=== PATIENT | male | born 2005 | race Hispanic/Latino ===

== ENCOUNTER 2025-04-23 13:16 | Emergency (ER) | payer OTHER, SELFPAY ==
[2025-04-23] VITALS (9 sets, daily range): BP systolic 128–140; BP diastolic 71–85; PULSE 70–87; RESP 16–19; TEMP 36.4–36.5; O2SAT 97–100; BMI 25.3
--- NOTE | 2025-04-23 13:27 | ED.RN ---
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 PT FELL OFF OF A WATER TOWER, NON SALVADOREAN SPEAKING. COMPANY IS [employer] #[phone]. THIS NURSE ATTEMPTED A PHONE CALL WHERE A GENERIC VOICEMAIL CAME ON RIGHT AWAY. CALL PURPOSE WAS FOR THE NEED OF DRUG TESTING OR NOT. THIS NURSE DID NOT LEAVE A MESSAGE ON THE VOICEMAIL IT WOULD CONTAIN PT INFORMATION AND IT DID NOT STATE COMPANY NAME ON THE VOICEMAIL.
--- NOTE | 2025-04-23 13:35 | CT_ITS ---
PROCEDURE: CT CHEST, ABD, PELVIS WO CONT 04/23/2025 REASON FOR EXAM: TRAUMA TECHNIQUE: Chest, abdomen and pelvis CT without intravenous contrast. Coronal and Sagittal reconstruction series were provided. One or more dose reduction techniques were used (e.g., Automated exposure control, adjustment of the mA and/or kV according to patient size, use of iterative reconstruction technique. RADIATION DOSE SUMMARY: See CT head for discussion of radiation dosage. COMPARISON: None. FINDINGS: CT CHEST: Hardware: None. Lymph nodes: Visualization is limited without the use of IV contrast. No obvious axillary, mediastinal or hilar lymphadenopathy. Heart and Vasculature: The heart is normal in size without pericardial effusion. The great vessels are grossly normal in caliber. No coronary artery calcifications. Lungs and Airways: Visualization is slightly limited by motion artifact. The central airways are grossly patent. Focal ground-glass opacity within the right middle lobe (series 11, image 75). No pleural effusion or pneumothorax. Bones: No acute thoracic fracture. CT ABDOMEN / PELVIS: Noncontrast technique limits evaluation of the abdominal and pelvic viscera. Liver: The unopacified liver is normal in size. No biliary ductal dilation. Gallbladder: No radiopaque stones within the gallbladder. Spleen: Normal in size. Pancreas: The unopacified pancreas is grossly unremarkable. Adrenals: No adrenal mass. Kidneys: No hydronephrosis or nephrolithiasis. Bladder: Distended and unremarkable. Reproductive Organs: Unremarkable. Bowel: The bowel loops are nondilated. No ascites or pneumoperitoneum. Normal appendix. Lymph nodes: Visualization is limited without the use of IV contrast. No large lymphadenopathy. Vasculature: The abdominal aorta and IVC are normal. Bones/soft tissues: No acute osseous fracture. Mild subcutaneous thickening along the left posterolateral hip. CT/CT Chest, Abd, Pelvis WO Cont IMPRESSION: CT chest: 1. No traumatic thoracic finding on noncontrast examination. 2. Small ground-glass opacity within the right middle lobe, which is indetermin ate in etiology and may be secondary to motion artifact or pneumonitis. Follow-up chest CT in 2 months could be useful to melissa luate for stability/resolution. CT abdomen/pelvis: No acute abdominopelvic finding on noncontrast examination. Reading Location: [facility]
--- NOTE | 2025-04-23 13:35 | EKG12_ITS ---
Test Reason : TRAUMA Blood Pressure : */* mmHG Vent. Rate : 71 BPM Atrial Rate : 71 BPM P-R Int : 174 ms QRS Dur : 86 ms QT Int : 382 ms P-R-T Axes : 63 96 39 degrees QTcB Int : 415 ms Normal sinus rhythm Rightward axis Borderline ECG Confirmed by IVETH GARCIA, GELA ([id number]), food editor PAIGE VANESSA ([id number]) on 04/25/2025 1:15:10 PM Referred By: Confirmed By: GELA LAZARO MD
--- NOTE | 2025-04-23 13:36 | CT_ITS ---
PROCEDURE: SPINE CERVICAL WITHOUT CONTRAS 04/23/2025 REASON FOR EXAM: TRAUMA TECHNIQUE: Cervical spine CT without contrast. Coronal and Sagittal reconstruction series were provided. One or more dose reduction techniques were used (e.g., Automated exposure control, adjustment of the mA and/or kV according to patient size, use of iterative reconstruction technique. RADIATION DOSE SUMMARY: DLP: 500 mGycm COMPARISON: None. FINDINGS: Alignment: There is straightening of the normal cervical lordosis. No traumatic listhesis. Vertebrae: No acute fracture. The vertebral body heights are maintained. No significant central or neural foraminal stenosis. Soft Tissues: No prevertebral hematoma. CT/Spine Cervical without Contras IMPRESSION: NO ACUTE CERVICAL FRACTURE Reading Location: [id number]
--- NOTE | 2025-04-23 13:36 | CT_ITS ---
EXAM: BRAIN/HEAD WITHOUT CONTRAST CLINICAL HISTORY: 19 y/o M with TRAUMA. COMPARISON: None. TECHNIQUE: Routine CT imaging of the head without IV contrast. Additional multiplanar reformats were obtained. Dose reduction techniques were used including intermediate exposure control (AEC),iterative reconstruction technique, and/or mA and/or KV dose adjustments based on patient's size. FINDINGS: The ventricles, sulci and cisterns are normal for patient age. There is no evidence of acute intracranial hemorrhage or herniation. There is no midline shift, mass effect, or extra-axial collection. The watson and white matter interfaces are maintained. Trace mucosal thickening of the right maxillary sinus. The orbits, visualized paranasal sinuses and mastoids are unremarkable. No acute calvarial fracture or scalp hematoma. Nasal fracture better evaluated on same-day facial CT. CT/Brain/Head without Contrast IMPRESSION: 1. No acute intracranial finding. 2. Nasal fracture better evaluated on same-day facial CT. Reading Location: [id number]
--- NOTE | 2025-04-23 13:39 | CT_ITS ---
EXAM: SINUS/FACIAL BONE CLINICAL HISTORY: TRAUMA COMPARISON: Same day CT head and C-spine. TECHNIQUE: Helical CT of the facial bones without IV contrast. Reformatted images are included for review. Dose reduction techniques were used including intermediate exposure control (AEC),iterative reconstruction technique, and/or mA and/or KV dose adjustments based on patient's size. FINDINGS: Acute, mildly comminuted fracture of the nasal bone and left frontal process, with associated mild hematoma. No additional linear lucency, cortical irregularity or bony deformity to suggest acute displaced fracture. The bilateral orbits, temporomandibular joints, pterygoid plates and zygomatic arches are symmetrically intact. The bilateral ocular muscles are symmetric and intact. The mandible is grossly intact. Mild mucosal thickening of the right maxillary sinus. The paranasal sinuses are otherwise well-aerated. The mastoid air cells are well- developed and also clear. CT/Sinus/Facial Bone IMPRESSION: Acute nasal bone and left frontal process fractures. Reading Location: [id number]
[2025-04-23] MEDS: 0.9% Normal Saline (1000mL) 1,000 ML 999 ML IV (13:42)
--- NOTE | 2025-04-23 13:53 | ED.RN ---
Pt. was placed in C-collar immediatly after being walked back to room. Dr. Rowell notified that pt. needs seen d/t injuries and accident.
[2025-04-23 14:00] LABS: Hematocrit 43.9 % (40-54); Hemoglobin 15.0 g/dL (13.0-16.5); Immature Granulocytes Count 0.190 X10^3/uL (0.0-0.0); Mean Corp Hgb Conc 34.2 g/dL (32-36); Mean Corpuscular Volume 90.0 fL (80-94); Mean Platelet Vol. 10.8 fl (6.2-12.0); NRBC Flagged by Analyzer 0 % (0-5); Platelet Count 249 K/mm3 (150-450); RBC Distribution Width CV 12.3 % (11.6-14.6); RBC Distribution Width SD 40.6 fl (35.1-43.9); Red Blood Count 4.88 M/mm3 (4.6-6.2); White Blood Count 11.5 K/mm3 (4.4-11.0)
[2025-04-23 14:10] LABS: Prothrombin Time (Protime)PT. 14.8 SECONDS (11.7-14.9)
[2025-04-23 14:11] LABS: Partial Thromboplast Time 25.1 Seconds (24.1-36.2)
--- NOTE | 2025-04-23 14:23 | EDS_ITS ---
HPI HPI - Fall History of Present Illness Chief Complaint: Fall Narrative Narrative: Chief complaint and HPI: Fall from height. 19-year-old male with no significant past medical history who is Angolan-speaking presents for evaluation after fall from height. Patient would like friend to translate Angolan. 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 No LOC. Not on blood thinners. Endorses pain to the wrist and ankle where he has obvious deformities. He has multiple facial abrasions. He denies any headache, neck pain, back pain, chest pain, shortness of breath, abdominal pain, numbness/tingling, vision change, hearing changes Review of systems: See HPI Medications: As listed on the chart Allergies: As listed on the chart PFSH: Per chart Vital signs: As listed on the chart. Reviewed. Physical exam: Gen: A&O x3, NAD Head: Normocephalic, atraumatic Eyes: No sclera icterus, bilateral injected conjunctiva, PERRL, EOMI ENT: TMs clear BL, moist mucous membranes, nasal bone abrasion, bilateral nares without septal hematoma, posterior oropharynx unremarkable without broken teeth, midface stable, no significant facial tenderness Neck: Trachea midline, No JVD, c-collar in place CV: RRR, no murmurs, no chest wall TTP Resp: Lungs CTA BL, no w/r/c GI: Abd soft, non-distended, non-tender, no r/r/g, sphincter tone intact Musc: Moves all extremities, strength +5/5, obvious deformity to the left ankle and wrist, radial pulses +2 bilaterally, femoral/DP/PT pulses +2 bilaterally, compartments soft, good capillary refill. No midline spinal tenderness, no bony step-offs. Skin: Warm, dry Neuro: Alert, oriented, grossly intact, sensation intact, GCS 15 Psych: Cooperative, appropriate mood and affect [facility] Home Medications ?Medication ?Instructions ?Recorded ?Last Taken ?Type NK 04/23/25 Unknown History Allergy/AdvReac Type Severity Reaction Status Date / Time No Known Allergies Allergy Verified 04/23/25 13:19 Social History Smoking Status: Never smoker EXAM Physical Exam Const Vital Signs: 04/23/25 13:17 04/23/25 13:36 04/23/25 14:17 Temperature 97.7 F L Temperature Source Oral Pulse Rate 87 72 Respiratory Rate 16 19 H Respiratory Effort Normal Blood Pressure 129/80 H Blood Pressure Mean 96 Pulse Ox 98 100 Oxygen Delivery Method Room Air Room Air 04/23/25 14:27 04/23/25 15:00 Temperature Temperature Source Pulse Rate 86 Respiratory Rate Respiratory Effort Blood Pressure 135/85 H 140/81 H Blood Pressure Mean 101 100 Pulse Ox 99 Oxygen Delivery Method MDM MDM MDM Narrative Medical decision making narrative: 19-year-old male with no significant past medical history who is Angolan- speaking presents for evaluation after fall from height. Patient would like fri end to translate Angolan. 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 No LOC. Not on blood thinners. Endorses pain to the wrist and ankle where he has obvious deformities. He has multiple facial abrasions. Differential diagnosis includes but is not limited to concussion, intracranial bleed, skull fracture, cervical fracture, intrathoracic and intra-abdominal injury, wrist fracture, ankle fracture. NS bolus, morphine, Zofran ordered. Tdap updated. Full trauma workup ordered. CBC with mild leukocytosis 11.5, suspect this is reactive. Otherwise unremarkable. Coagulation panel unremarkable. CMP unremarkable. Lipase unremarkable. Alcohol level negative. CT of the brain and cervical spine without any acute traumatic injury. Given patient has distracting injuries will not clear C-spine at this time. CT of the face shows acute nasal bone and left frontal process fractures. CT chest, abdomen pelvis close no acute traumatic injury other than a suspected right middle lobe pulmonary contusion. There is a small ground glass opacity. all plain film x-rays were reviewed interpreted by az, ED physician. Patient has a left distal tibia fracture. Patient has a left distal radius fracture. Awaiting official reads by radiology. Patient's fractures were reduced to the best my ability without sedation and splinted. He tolerated this well. Will get repeat x-rays after splints. Patient will warrant transfer to a trauma center for further evaluation and treatment. He confirmed understanding the plan. I spoke with [facility] [place] [facility] physician who accepted transfer. UA has yet to be obtained. Joint Reduction/splint placement Indication: Left ankle fracture Consent: Risks, benefits, and alternatives discussed with patient and consent obtained Procedure: The dislocation was reduced to the best of my abilities utilizing traction technique. Following reduction, immobilization was performed using web roll, fiberglass, Bird bandages in a posterior/sugar-tong splint and the extremity's neurovascular status was re-checked and was unchanged from the pre- procedure exam. The patient tolerated the procedure without complications. Joint Reduction/splint placement Indication: Left wrist fracture Consent: Risks, benefits, and alternatives discussed with patient and consent obtained Procedure: The dislocation was reduced to the best of my abilities utilizing traction technique. Following reduction, immobilization was performed using web roll, fiberglass, Bird bandages and a sugar-tong splint and the extremity's neurovascular status was re-checked and was unchanged from the pre-procedure exam. The patient tolerated the procedure without complications. EKG: Interpreted by me/EM physician: EKG shows normal sinus rhythm without acute ischemic changes. Heart rate 71 Impression: 1. Fall from height, 30 feet 2. Injury at work 3. Nasal bone fracture 4. Left frontal process fractures 5. Left ankle fracture status post reduction/splint 6. Left wrist fracture status post reduction/splint 7. Multiple abrasions 8. Right pulmonary contusion 9. Closed head injury Lab Data Labs: Laboratory Results - last 24 hr 04/23/25 04/23/25 13:35 13:38 WBC 11.5 H RBC 4.88 Hgb 15.0 Hct 43.9 MCV 90.0 MCH 30.7 MCHC 34.2 RDW Std Deviation 40.6 RDW Coeff of Timothy 12.3 Plt Count 249 MPV 10.8 Immature Gran % (Auto) 1.700 H Neut % (Auto) 65.2 Lymph % (Auto) 25.6 [place] % (Auto) 5.7 Eos % (Auto) 1.2 Baso % (Auto) 0.6 Absolute Neuts (auto) 7.5 Absolute Lymphs (auto) 2.94 Nucleated RBC % 0 PT 14.8 INR 1.1 APTT 25.1 Sodium 139 Potassium 3.7 Chloride 104 Carbon Dioxide 22.8 Anion Gap 12 BUN 12 Creatinine 1.03 Estim Creat Clear Calc 103.24 Est GFR (MDRD) Non-Af 107 BUN/Creatinine Ratio 11.9 Glucose 140 H Calcium 9.2 Total Bilirubin 0.88 Direct Bilirubin 0.29 AST 28 ALT 21 Alkaline Phosphatase 104 Total Protein 7.7 Albumin 4.5 Globulin 3.2 Lipase 35 Ethyl Alcohol < 10.1 Blood Type A POSITIVE Antibody Screen NEGATIVE Radiography Diagnostic Testing: Clinical Impression(s) from Imaging Studies Chest/Abdomen/Pelvis CT 04/23/25 13:35 IMPRESSION: CT chest: 1. No traumatic thoracic finding on noncontrast examination. 2. Small ground-glass opacity within the right middle lobe, which is indeterminate in etiology and may be secondary to motion artifact or pneumonitis. Follow-up chest CT in 2 months could be useful to evaluate for stability/resolution. CT abdomen/pelvis: No acute abdominopelvic finding on noncontrast examination. Reading Location: [facility] Brain CT 04/23/25 13:36 IMPRESSION: 1. No acute intracranial finding. 2. Nasal fracture better evaluated on same-day facial CT. Reading Location: [id number] Cervical Spine CT 04/23/25 13:36 IMPRESSION: NO ACUTE CERVICAL FRACTURE Reading Location: [facility] Facial/Sinus 04/23/25 13:39 IMPRESSION: Acute nasal bone and left frontal process fractures. Reading Location: [facility] Discharge Plan Triage Chief Complaint: Fall ED Provider: Joshua Muñoz Dx/Rx/DC Orders Prescriptions: No Action NK Primary Care Provider: Care Physician,No Primary Referrals: Care Physician,No Primary [Primary Care Provider] - Print Language: Angolan
--- NOTE | 2025-04-23 14:45 | RAD_ITS ---
PROCEDURE: LEFT TIBIA FIBULA 2 VIEWS; LEFT ANKLE MIN 3 VIEWS 04/23/2025 REASON FOR EXAM: TRAUMA; PAIN TECHNIQUE: Frontal, lateral and oblique views of the left tibia, fibula, and ankle COMPARISON: None. FINDINGS: Acute highly comminuted intra-articular fracture of the distal left tibial plafond with moderate medial displacement of the medial malleolar fragment, and lateral subluxation of the tibiotalar articulation. Prominent widening of the lateral clear space at the talofibular articulation. No definite acute fracture of the talus or distal fibula. Prominent soft tissue swelling about the ankle. RAD/Ankle min 3 Views IMPRESSION: Acute comminuted intra-articular fracture of the left distal tibial plafond wit h moderate displacement and lateral subluxation of the tibiotalar articulation, and widening of the lateral clear space likely ref lecting disruption of talofibular ligaments. Moderate soft tissue swelling about the ankle. Reading Location: [id number]
--- NOTE | 2025-04-23 14:45 | RAD_ITS ---
PROCEDURE: LEFT TIBIA FIBULA 2 VIEWS; LEFT ANKLE MIN 3 VIEWS 04/23/2025 REASON FOR EXAM: TRAUMA; PAIN TECHNIQUE: Frontal, lateral and oblique views of the left tibia, fibula, and ankle COMPARISON: None. FINDINGS: Acute highly comminuted intra-articular fracture of the distal left tibial plafond with moderate medial displacement of the medial malleolar fragment, and lateral subluxation of the tibiotalar articulation. Prominent widening of the lateral clear space at the talofibular articulation. No definite acute fracture of the talus or distal fibula. Prominent soft tissue swelling about the ankle. RAD/Tibia & Fibula 2 Views IMPRESSION: Acute comminuted intra-articular fracture of the left distal tibial plafond wit h moderate displacement and lateral subluxation of the tibiotalar articulation, and widening of the lateral clear space likely ref lecting disruption of talofibular ligaments. Moderate soft tissue swelling about the ankle. Reading Location: [id number]
--- NOTE | 2025-04-23 14:45 | RAD_ITS ---
PROCEDURE: LEFT WRIST MIN 3 VIEWS; LEFT HAND MIN 3 VIEWS 04/23/2025 REASON FOR EXAM: TRAUMA; HAND TECHNIQUE: Frontal, lateral and oblique views of the left hand and wrist COMPARISON: None. FINDINGS: Acute comminuted impacted intra-articular fracture of the distal left radial metaphysis, with moderate dorsal displacement and angulation. Slight positive ulnar variance. No additional acute fracture or dislocation identified. Carpal alignment is maintained. Preserved joint spaces. Patient's fingers are fixed in the flexed position which slightly limits evaluation, but no acute abnormality is identified of the left digits. Radiopaque densities overlying the patient's fingernails are likely cosmetic. Prominent soft tissue swelling about the wrist. RAD/Hand Min 3 Views IMPRESSION: Acute comminuted impacted intra-articular fracture of the distal left radial me taphysis, with moderate dorsal displacement and angulation. Reading Location: [id number]
--- NOTE | 2025-04-23 14:45 | RAD_ITS ---
PROCEDURE: RIGHT WRIST MIN 3 VIEWS 04/23/2025 REASON FOR EXAM: TRAUMA TECHNIQUE: Frontal lateral and oblique views of the right wrist COMPARISON: None. FINDINGS: No acute fracture or dislocation. Alignment is anatomic. Preserved joint spaces. No aggressive osseous lesion. No appreciable soft tissue swelling or radiopaque foreign body. RAD/Wrist min 3 Views IMPRESSION: No acute fracture or dislocation. Reading Location: [id number]
[2025-04-23 14:51] LABS: AST(SGOT) 28 U/L (<=37); Alanine Aminotransfer ALT/SGPT 21 U/L (<=46); Albumin, Serum 4.5 g/dL (3.5-5.0); Alkaline Phosphatase 104 U/L (40-129); Anion Gap 12 (5-15); BUN 12 mg/dL (4-19); BUN/Creat Ratio 11.9 RATIO (10-20); Bilirubin, Direct 0.29 mg/dL (0.00-0.30); Calcium,Total 9.2 mg/dL (7.6-11.0); Carbon Dioxide 22.8 mmol/L (21.0-32.0); Chloride 104 mmol/L (98-108); Estimated Creatinine Clearance 103.24 ml/min (50-250); Globulin 3.2 g/dL (2.2-4.2); Glucose 140 mg/dL (70-99); Lipase 35 U/L (13-75); Potassium 3.7 mmol/L (3.3-5.1)
--- NOTE | 2025-04-23 14:52 | RAD_ITS ---
PROCEDURE: LEFT WRIST MIN 3 VIEWS; LEFT HAND MIN 3 VIEWS 04/23/2025 REASON FOR EXAM: TRAUMA; HAND TECHNIQUE: Frontal, lateral and oblique views of the left hand and wrist COMPARISON: None. FINDINGS: Acute comminuted impacted intra-articular fracture of the distal left radial metaphysis, with moderate dorsal displacement and angulation. Slight positive ulnar variance. No additional acute fracture or dislocation identified. Carpal alignment is maintained. Preserved joint spaces. Patient's fingers are fixed in the flexed position which slightly limits evaluation, but no acute abnormality is identified of the left digits. Radiopaque densities overlying the patient's fingernails are likely cosmetic. Prominent soft tissue swelling about the wrist. RAD/Wrist min 3 Views IMPRESSION: Acute comminuted impacted intra-articular fracture of the distal left radial me taphysis, with moderate dorsal displacement and angulation. Reading Location: [id number]
[2025-04-23 15:31] LABS: Alcohol, Blood (Medical)-Serum < 10.1 mg/dL (<=10.0)
--- NOTE | 2025-04-23 15:35 | ED.RN ---
Pt. friend at bedside assisting with translation and filling out FROI form. Friend states the incident occured after he fell from a water tower that is located [place] [address] behind [facility].
--- NOTE | 2025-04-23 15:52 | ED.RN ---
We are still not able to reach employer in regard to drug and alcohol testing.
--- NOTE | 2025-04-23 16:20 | RAD_ITS ---
PROCEDURE: LEFT WRIST 2 VIEWS 04/23/2025 REASON FOR EXAM: SPLINT TECHNIQUE: Frontal and lateral radiographs of the left wrist COMPARISON: None available. FINDINGS: Overlying fiberglass splint material limits evaluation of fine osseous and soft tissue detail. There is a comminuted impacted intra-articular fracture of the distal left radial metaphysis, with moderate dorsal displacement and angulation of the distal fragment. No additional acute fracture appreciated. Carpal alignment appears maintained. Moderate soft tissue swelling about the wrist. RAD/Wrist 2 Views IMPRESSION: Comminuted impacted intra-articular fracture of the distal left radial metaphys is, with moderate dorsal displacement and angulation. Overlying splint material. Reading Location: [id number]
--- NOTE | 2025-04-23 16:20 | RAD_ITS ---
PROCEDURE: LEFT ANKLE 2 VIEWS 04/23/2025 REASON FOR EXAM: SPLINT TECHNIQUE: Frontal and lateral radiographs of the left ankle COMPARISON: None available. FINDINGS: Overlying fiberglass splint material limits evaluation of fine osseous and soft tissue detail. Moderately displaced comminuted intra-articular fracture of the distal tibial plafond and medial malleolus, displaced anteromedially with dorsal subluxation of the distal tibia with respect to the talar dome. Disruption of the ankle mortise, although there is no significant widening of the medial or lateral clear space. Moderate soft tissue swelling about the ankle. RAD/Ankle 2 Views IMPRESSION: Comminuted intra-articular fracture of the distal tibial plafond/medial malleol us, with moderate anteromedial displacement and dorsal subluxation of the tibiotalar articulation. Overlying splint material. Reading Location: [id number]
== END 2025-04-23 16:41 | disposition short-term general hospital (02) ==
PROVIDERS: Emergency Provider Surgery; Visit Provider Surgery
DX: S82.872A Displaced pilon fracture of left tibia, initial encounter for closed fracture (principal); S02.40DA Maxillary fracture, left side, initial encounter for closed fracture; S52.572A Other intraarticular fracture of lower end of left radius, initial encounter for closed fracture; S27.321A Contusion of lung, unilateral, initial encounter; S02.2XXA Fracture of nasal bones, initial encounter for closed fracture; S00.81XA Abrasion of other part of head, initial encounter; W17.89XA Other fall from one level to another, initial encounter; Y99.0 Civilian activity done for income or pay
CPT/HCPCS: 27825; 25605; 70450; 70486; 71250; 72125; 73100; 73110; 73130; 73590; 73600; 73610; 74176; 80048; 80076; 82077; 83690; 85025; 85610; 85730; 86850; 86900; 86901; 90715; 93005; 96361; 96374; 96375; 99285; A4216; J2405